=== PATIENT | male | born 1955 | race Caucasian/White ===

== ENCOUNTER 2016-11-08 18:23 | Emergency (ER) | payer BC ==
[2016-11-08 18:40] VITALS: TEMP 98.3; BMI 29.8
--- NOTE | 2016-11-08 18:50 | PDOC ---
History of Present Illness - History of Present Illness Initial Comments: 11/08/16 19:16 The patient is a 61-year-old male, with a significant past medical history of HTN and gout, who presents to the ED with nasal congestion and sinus pain. The patient has been dealing with a head cold for the past few days. He states that he developed bleeding in his left nares this morning. Patient put tissue in his nose to stop the bleeding and that seemed to help. While he bent down to grab something in his kitchen, blood gushed out of his nose so he decided to report to the ED for further evaluation. Upon arrival to the ED, the patients BP was noted to be 217/139. Pts BP is uncontrolled. He is complaining of facial tenderness near his sinuses. He denies any fever, chills, nausea, vomiting, diarrhea, or abdominal pain. He denies any chest pain or shortness of breath. He denies any headache. <Laney Blair - Last Filed: 11/08/16 19:16> <Tana Pulliam - Last Filed: 11/08/16 21:30> - General Chief Complaint: Nasal Bleeding Stated Complaint: NOSE BLEED Past History <Laney Blair - Last Filed: 11/08/16 19:16> - Past Medical History HTN: Yes (non compliant with meds x 8 yrs) Other medical history: gout - Suicide/Smoking/Psychosocial Hx Smoking History: Never smoked Have you smoked in the past 12 months: No Information on smoking cessation initiated: No Hx Alcohol Use: Yes Drug/Substance Use Hx: No Substance Use Type: Alcohol <Tana Pulliam - Last Filed: 11/08/16 21:30> - Past Medical History Allergies/Adverse Reactions: Allergies Allergy/AdvReac Type Severity Reaction Status Date / Time Penicillins Allergy Verified 11/08/16 18:38 Home Medications: Ambulatory Orders Amlodipine Besylate [Norvasc -] 10 mg PO DAILY #14 tablet 11/08/16 Clindamycin [Cleocin -] 150 mg PO Q8H #12 capsule 11/08/16 Hydrochlorothiazide [Hctz -] 25 mg PO DAILY #14 tablet 11/08/16 Review of Systems - Review of Systems Able to Perform ROS?: Yes Comments:: 11/08/16 19:17 CONSTITUTIONAL: Absent: fever, no chills, no fatigue EYES: Absent: visual changes ENT: Present: Nosebleed, sinus congestion Absent: ear pain, no sore throat CARDIOVASCULAR: Absent: chest pain, no palpitations RESPIRATORY: Absent: cough, no SOB GI: Absent: abdominal pain, no nausea, no vomiting, no constipation, no diarrhea GENITOURINARY: Absent: dysuria, no frequency, no hematuria MUSKULOSKELETAL: Absent: back pain, no arthralgia, no myalgia SKIN: Absent: rash NEURO: Absent: headache <Laney Blair - Last Filed: 11/08/16 19:16> *Physical Exam - Vital Signs Last Vital Signs Temp Pulse Resp BP Pulse Ox 98.3 F 113 H 20 217/139 99 11/08/16 18:38 11/08/16 18:38 11/08/16 18:38 11/08/16 18:38 11/08/16 18:38 - Physical Exam Comments: 11/08/16 19:19 GENERAL: Well-appearing, well-nourished. No apparent distress. HEENT: (+)Small blood clot anterior right nares. Larger blot clot in left anterior nares. Normocephalic, atraumatic. PERRL, EOM intact. CARDIOVASCULAR: Normal S1, S2. Regular rate and rhythm. PULMONARY: Clear to auscultation bilaterally. ABDOMEN: Soft, non-distended, non-tender. EXTREMITIES: Normal ROM in all four extremities. No gross deformities. SKIN: Warm, dry. No rash NEUROLOGICAL: No focal neurological deficits. <Laney Blair - Last Filed: 11/08/16 19:16> - Vital Signs Last Vital Signs Temp Pulse Resp BP Pulse Ox 98.3 F 113 H 20 217/139 99 11/08/16 18:38 11/08/16 18:38 11/08/16 18:38 11/08/16 18:38 11/08/16 18:38 <Tana Pulliam - Last Filed: 11/08/16 21:30> ED Treatment Course - LABORATORY CBC & Chemistry Diagram: 11/08/16 19:20 11/08/16 19:20 <Tana Pulliam - Last Filed: 11/08/16 21:30> *DC/Admit/Observation/Transfer - Attestations Scribe Attestion: 11/08/16 19:24 Documentation prepared by Laney Blair, acting as medical dosimetrist for Tana Pulliam MD. <Laney Blair - Last Filed: 11/08/16 19:16> <Tana Pulliam - Last Filed: 11/08/16 21:30> Diagnosis at time of Disposition: Anterior epistaxis, Elevated blood pressure reading - Discharge Dispostion Disposition: HOME Condition at time of disposition: Stable - Prescriptions Prescriptions: Clindamycin [Cleocin -] 150 mg PO Q8H #12 capsule Hydrochlorothiazide [Hctz -] 25 mg PO DAILY #14 tablet Amlodipine Besylate [Norvasc -] 10 mg PO DAILY #14 tablet - Referrals Referrals: Trevin Pandey MD [Primary Care Provider] - - Patient Instructions Printed Discharge Instructions: DI for Nosebleed, DI for High Blood Pressure Additional Instructions: please pick up driver your medications at [facility] on [facility] and take them as directed Have the nasal tampon removed within 48 hours YOU HAVE ELEVATED BLOOD PRESSURE THAT NEEDS TO BE ADDRESSED BY YOUR REGULAR PHYSICIAN
[2016-11-08] MEDS ORDERED: HYDROCHLOROTHIAZIDE 25 MG TABLET (FP) PO ONE (19:01)
[2016-11-08] MEDS ORDERED: cloNIDine HCL 0.1 MG TABLET PO ONE (19:03)
[2016-11-08] MEDS ORDERED: HYDROCHLOROTHIAZIDE 25 MG TABLET (FP) ONE (19:25)
[2016-11-08] MEDS ORDERED: cloNIDine HCL 0.1 MG TABLET ONE (19:26)
[2016-11-08 19:32] LABS: BASOPHIL 0.6 % (0-2.0); EOSINOPHIL 3.4 % (0-4.5); MCH 32.7 pg (25.7-33.7); MCHC 34.5 g/dl (32.0-35.9); MEAN CELL VOLUME 94.6 fl (80-96); MEAN PLT VOLUME 8.3 fl (7.5-11.1); NEUTROPHILS 51.7 % (42.8-82.8); PLATELET COUNT 180 K/MM3 (134-434); RDW 15.2 % (11.9-15.9); WHITE BLOOD COUNT 6.8 K/mm3 (4.0-10.0)
[2016-11-08 19:52] LABS: ALBUMIN 3.9 g/dl (3.4-5.0); ALK PHOS 31 U/L (45-117); ANION GAP 9 (8-16); BILIRUBIN,TOTAL 0.6 mg/dL (0.2-1.0); CALCIUM 9.2 mg/dL (8.5-10.1); CO2 25 mmol/L (21-32); GLUCOSE,RANDOM 113 mg/dL (74-106); SGOT/AST 24 U/L (15-37); SGPT/ALT 31 U/L (12-78); TOT PROT 7.2 g/dl (6.4-8.2)
[2016-11-08 20:19] LABS: CPK 137 IU/L (39-308); TROPONIN I < 0.02 ng/ml (0.00-0.05)
[2016-11-08 21:01] VITALS: BP 132/94; PULSE 95
--- NOTE | 2016-11-09 09:36 | EKG ---
Test Reason : Blood Pressure : / mmHG Vent. Rate : 098 BPM Atrial Rate : 098 BPM P-R Int : 148 ms QRS Dur : 076 ms QT Int : 348 ms P-R-T Axes : 002 -31 000 degrees QTc Int : 444 ms NORMAL SINUS RHYTHM LEFT AXIS DEVIATION MODERATE VOLTAGE CRITERIA FOR LVH, MAY BE NORMAL VARIANT ABNORMAL ECG WHEN COMPARED WITH ECG OF 25-FEB-1997 09:31, NO SIGNIFICANT CHANGE WAS FOUND Confirmed by MARIA TERESA BULLARD, AVERY ([id number]) on 11/09/2016 9:35:45 AM Referred By: Confirmed By:AVERY MOREL MD
== END 2016-11-08 21:46 | disposition home or self-care (01) ==
LOC: JER 18:23
PROC: 2Y41X5Z Packing of Nasal Region using Packing Material (ICD-10-PCS; principal; 2016-11-08)
DX: I10 Essential (primary) hypertension (principal); R04.0 Epistaxis; M10.9 Gout, unspecified
CPT/HCPCS: 36415; 80053; 84484; 85025; 93005; 93010; 99282-25

== ENCOUNTER 2016-11-10 07:23 | Emergency (ER) | payer BC ==
[2016-11-10 07:43] VITALS: BP 153/104; PULSE 78; TEMP 98; BMI 25.8
--- NOTE | 2016-11-10 07:47 | PDOC ---
History of Present Illness - General Chief Complaint: Nasal Bleeding Stated Complaint: NOSEBLEED Time Seen by Provider: 11/10/16 07:46 History Source: Patient Exam Limitations: No Limitations - History of Present Illness Initial Comments: 11/10/16 08:23 Pt. is a 61 y/o M with PMH of HTN, anxiety, who presents to the ED c/o of a nosebleed. Pt. states he was seen on 11/08/16 in the ED for the same nosebleed. His L nostril was packed with a rhinorocket, started on clindamycin and discharged home. This morning, pt states his nose was bleeding out of the R nostril. He also c/o of headache and nose pain. He states the bleeding on the right side stopped after 5 minutes, but now he is concerned his BP is high. He states he has an appointment with Dr. Recinos at 9:00am today. Denies fever, chills , n/v/d, tasting blood, throat pain, difficulty swallowing, visual changes. Past History - Travel Traveled outside of the country in the last 30 days: No Close contact w/someone who was outside of country & ill: No - Past Medical History Allergies/Adverse Reactions: Allergies Allergy/AdvReac Type Severity Reaction Status Date / Time Penicillins Allergy Verified 11/10/16 07:43 Home Medications: Ambulatory Orders Amlodipine Besylate [Norvasc -] 10 mg PO DAILY #14 tablet 11/08/16 Clindamycin [Cleocin -] 150 mg PO Q8H #12 capsule 11/08/16 Hydrochlorothiazide [Hctz -] 25 mg PO DAILY #14 tablet 11/08/16 Lorazepam [Ativan] 0.25 mg PO HS PRN #1 tablet MDD 1 11/10/16 HTN: Yes (non compliant with meds x 8 yrs) - Suicide/Smoking/Psychosocial Hx Smoking History: Unknown if ever smoked Have you smoked in the past 12 months: No Hx Alcohol Use: No Drug/Substance Use Hx: No Substance Use Type: Alcohol Review of Systems - Review of Systems Able to Perform ROS?: Yes Comments:: 12/27/16 10:19 11/10/16 09:34 CONSTITUTIONAL: Absent: fever, chills, diaphoresis, generalized weakness, malaise, loss of appetite HEENT: Present: nasal pain, R nasal bloody nose. Absent: rhinorrhea, throat pain, throat swelling, difficulty swallowing, mouth swelling, ear pain, eye pain, visual Changes CARDIOVASCULAR: Absent: chest pain, loss of consciousness, palpitations, irregular heart rate, peripheral edema RESPIRATORY: Absent: cough, shortness of breath, dyspnea with exertion, orthopnea, wheezing, stridor, hemoptysis GASTROINTESTINAL: Absent: abdominal pain, abdominal distension, nausea, vomiting, diarrhea, constipation, melena, hematochezia GENITOURINARY: Absent: dysuria, frequency, urgency, hesitancy, hematuria, flank pain, genital pain MUSCULOSKELETAL: Absent: myalgia, arthralgia, joint swelling SKIN: Absent: rash, itching, pallor HEMATOLOGIC/IMMUNOLOGIC: Absent: easy bleeding, easy bruising, lymphadenopathy, frequent infections ENDOCRINE: Absent: unexplained weight gain, unexplained weight loss, heat intolerance, cold intolerance NEUROLOGIC: Present: headache Absent: focal weakness or paresthesias, dizziness, unsteady gait, seizure, mental status changes, bladder or bowel incontinence PSYCHIATRIC: Absent: anxiety, depression, suicidal or homicidal ideation, hallucinations. Is the patient limited Ukrainian proficient: No *Physical Exam - Vital Signs Last Vital Signs Temp Pulse Resp BP Pulse Ox 98.0 F 78 18 153/104 100 11/10/16 07:25 11/10/16 07:25 11/10/16 07:25 11/10/16 07:25 11/10/16 07:25 - Physical Exam Comments: 12/27/16 10:22 11/10/16 09:25 GENERAL: Well developed, well nourished. Awake and alertx3. No acute distress. HEENT: Normocephalic, atraumatic. PERRLA, EOMI. No conjunctival pallor. Sclera are non- icteric. Rhinorocket placed in the L nare and in proper position. Old blood present on the end of the rhinorocket. No blood/active bleeding from R nare. Moist mucous membranes. Oropharynx is clear, no blood noted in the posterior pharynx. NECK: Supple. Full ROM. No JVD. Carotid pulses 2+ and symmetric, without bruits. No thyromegaly. No lymphadenopathy. CARDIOVASCULAR: Regular rate and rhythm. No murmurs, rubs, or gallops. Distal pulses are 2+ and symmetric. PULMONARY: No evidence of respiratory distress. Lungs clear to auscultation bilaterally. No wheezing, rales or rhonchi. ABDOMINAL: Soft. Non-tender. Non-distended. No rebound or guarding. No organomegaly. Normoactive bowel sounds. MUSCULOSKELETAL Normal range of motion at all joints. No bony deformities or tenderness. No CVA tenderness. EXTREMITIES: No cyanosis. No clubbing. No edema. No calf tenderness. SKIN: Warm and dry. Normal capillary refill. No rashes. No jaundice. NEUROLOGICAL: Alert, awake, appropriate. Cranial nerves 2-12 intact. No deficits to light touch and temperature in face, upper extremities and lower extremities. No motor deficits in the in face, upper extremities and lower extremities. Normoreflexic in the upper and lower extremities. Normal speech. Toes are down- going bilaterally. Gait is normal without ataxia. PSYCHIATRIC: Cooperative. Good eye contact. Appropriate mood and affect. Medical Decision Making - Medical Decision Making 11/10/16 08:26 Pt. is a 61 y/o male with PMH of HTN, anxiety who presents to the ED c/o nasal bleeding and pain. There is no active nasal bleeding in the ED and the rhinorocket in the L nare is in the proper position. Pt. states that he has been taking his antibiotics as prescribed and that he missed taking his blood pressure medication this morning. Pt. is afebrile in the ED. Blood pressure elevated at 150/105. Less likely ANDERSON d/t infectious reason as pt. on abx. Most likely d/t the presence of the rhinorocket. Will treat the ANDERSON at this time. Pt. has appointment with ENT Dr. Recinos at 09:00. 11/10/16 08:56 Pt. reports his headache is better after tramadol and tylenol. Will d/c at this time so pt. can make his appointment to see Dr. Recinos. *DC/Admit/Observation/Transfer Diagnosis at time of Disposition: Anterior epistaxis - Discharge Dispostion Disposition: HOME Condition at time of disposition: Improved Admit: No - Prescriptions Prescriptions: Lorazepam [Ativan] 0.25 mg PO HS PRN #1 tablet MDD 1 PRN Reason: Anxiety - Referrals Referrals: Trevin Pandey MD [Primary Care Provider] - Romain Recinos MD [Staff Physician] - - Patient Instructions Printed Discharge Instructions: DI for Nosebleed Additional Instructions: You have a rhinorocket in your nose which is most likely causing your headache. You may take Tylenol as needed for the pain. Do not exceed 4,000mg a day. Go to Dr. Recinos's office now to have your rhino rocket evaluated. Return to the ED if you have worsening headache, weakness, dizziness, nausea, vomiting or any changes in your symptoms. - Post Discharge Activity
[2016-11-10] MEDS ORDERED: ACETAMINOPHEN 325 MG TABLET (FP) PO ONE (08:06)
[2016-11-10] MEDS ORDERED: ACETAMINOPHEN 325 MG TABLET (FP) ONE (08:11)
[2016-11-10] MEDS ORDERED: traMADol HCL 50 MG TABLET PO ONE (08:48)
[2016-11-10] MEDS ORDERED: traMADol HCL 50 MG TABLET ONE (08:50)
== END 2016-11-10 09:11 | disposition home or self-care (01) ==
LOC: JER 07:23
PROC: 2Y41X5Z Packing of Nasal Region using Packing Material (ICD-10-PCS; principal; 2016-11-10)
DX: R04.0 Epistaxis (principal); I10 Essential (primary) hypertension
CPT/HCPCS: 99282-25

== ENCOUNTER 2024-05-22 06:50 | Day surgery (SDC) | payer OTHER, BC ==
[2024-05-10 14:43] VITALS: BMI 29.8
[2024-05-22 10:23] VITALS: TEMP 98
[2024-05-22] MEDS ORDERED: MIDAZOLAM HCL 2 MG/2 ML SINGLE DOSE VIAL ONE (10:52)
[2024-05-22 11:44] VITALS: RESP 14
[2024-05-22 12:53] VITALS: BP 106/66; PULSE 60
== END 2024-05-22 12:30 | disposition home or self-care (01) ==
LOC: JASU-ENDO 06:50
PROVIDERS: ATTEND Internal Medicine Gastroenterology
PROC: 0DBN8ZX Excision of Sigmoid Colon, Via Natural or Artificial Opening Endoscopic, Diagnostic (ICD-10-PCS; 2024-05-22)
PROC: 0DBP8ZX Excision of Rectum, Via Natural or Artificial Opening Endoscopic, Diagnostic (ICD-10-PCS; 2024-05-22)
PROC: 0DBF8ZX Excision of Right Large Intestine, Via Natural or Artificial Opening Endoscopic, Diagnostic (ICD-10-PCS; 2024-05-22)
PROC: 0DBB8ZX Excision of Ileum, Via Natural or Artificial Opening Endoscopic, Diagnostic (ICD-10-PCS; 2024-05-22)
PROC: 0DBM8ZX Excision of Descending Colon, Via Natural or Artificial Opening Endoscopic, Diagnostic (ICD-10-PCS; 2024-05-22)
PROC: 0DB98ZX Excision of Duodenum, Via Natural or Artificial Opening Endoscopic, Diagnostic (ICD-10-PCS; 2024-05-22)
PROC: 0DB78ZX Excision of Stomach, Pylorus, Via Natural or Artificial Opening Endoscopic, Diagnostic (ICD-10-PCS; 2024-05-22)
PROC: 0DB68ZX Excision of Stomach, Via Natural or Artificial Opening Endoscopic, Diagnostic (ICD-10-PCS; 2024-05-22)
PROC: 0DBH8ZX Excision of Cecum, Via Natural or Artificial Opening Endoscopic, Diagnostic (ICD-10-PCS; principal; 2024-05-22 10:30)
DX: Z12.11 Encounter for screening for malignant neoplasm of colon (principal); D12.5 Benign neoplasm of sigmoid colon; K64.8 Other hemorrhoids; K57.30 Diverticulosis of large intestine without perforation or abscess without bleeding; K52.89 Other specified noninfective gastroenteritis and colitis; K62.89 Other specified diseases of anus and rectum; K29.50 Unspecified chronic gastritis without bleeding; K25.9 Gastric ulcer, unspecified as acute or chronic, without hemorrhage or perforation
CPT/HCPCS: 88305-TC; 88342-TC